=== PATIENT | female | born 1970 | race Caucasian/White ===

== ENCOUNTER 2017-06-29 10:41 | Outpatient (CLI) | payer MEDICAID ==
[2017-06-29 17:26] LABS: BASOPHILS # (AUTO) 0.1 10^3/uL (0.0-0.1); BASOPHILS % (AUTO) 0.6 %; EOSINOPHILS # (AUTO) 0.3 10^3/uL (0.0-0.7); EOSINOPHILS % (AUTO) 2.3 %; HCT - HEMATOCRIT 36.8 % (37.0-47.0); HGB - HEMOGLOBIN 11.6 g/dL (12.0-16.0); LYMPHOCYTES # (AUTO) 3.3 10^3/uL (1.5-3.5); LYMPHOCYTES % (AUTO) 28.1 %; MEAN CORPUSCULAR HEMOGLOBIN 25.9 pg (27.0-31.0); MEAN CORPUSCULAR HGB CONC 31.4 g/dL (32.0-36.0); MEAN CORPUSCULAR VOLUME 82.5 fL (81.0-99.0); MEAN PLATELET VOLUME 7.3 fL (7.9-10.8); MONOCYTES # (AUTO) 0.6 10^3/uL (0.0-1.0); MONOCYTES % (AUTO) 5.2 %; NEUTROPHILS # (AUTO) 7.5 10^3/uL (1.5-6.6); NEUTROPHILS % (AUTO) 63.8 %; RED BLOOD COUNT 4.46 10^6/uL (4.20-5.40); RED CELL DISTRIBUTION WIDTH 15.2 % (12.0-15.0); UNCORRECTED WHITE BLOOD COUNT 11.7 x10^3/uL; WHITE BLOOD COUNT 11.7 x10^3/uL (4.8-10.8)
[2017-06-29 17:46] LABS: ALBUMIN/GLOBULIN RATIO 1.3 (1.0-2.2); BILIRUBIN,TOTAL 0.6 mg/dL (0.2-1.0); BUN - BLOOD UREA NITROGEN 10 mg/dL (6-20); CALCIUM 9.2 mg/dL (8.5-10.3); CARBON DIOXIDE - CO2 22 mmol/L (21-32); CHLORIDE 104 mmol/L (101-111); CHOL/HDL RATIO 5.3 (<4.4); CHOLESTEROL 210 mg/dL; CREATININE 0.7 mg/dL (0.4-1.0); GFR - MDRD 90 (>89); GLUCOSE 98 mg/dL (70-100); HDL CHOLESTEROL 40 mg/dL; LDL/HDL RATIO 3.4 (<4.4); POTASSIUM 4.1 mmol/L (3.5-5.0); SODIUM 135 mmol/L (135-145); TOTAL PROTEIN 7.8 g/dL (6.7-8.2); TRIGLYCERIDES 163 mg/dL; VLDL CHOLESTEROL 33 mg/dL
== END 2017-06-29 10:42 | disposition home or self-care (01) ==
LOC: LAB.F 10:41
PROVIDERS: ATTEND Nurse Practitioner Family
DX: R53.83 Other fatigue (principal); Z13.220 Encounter for screening for lipoid disorders
CPT/HCPCS: 36415; 80053; 80061; 84443; 85025

== ENCOUNTER 2017-07-14 08:00 | Outpatient (CLI) | payer MEDICAID ==
[2017-07-14 18:23] LABS: IRON 14 ug/dL (28-170); TOTAL IRON BINDING CAPACITY 400 ug/dL (250-450); TRANSFERRIN 286 mg/dL (192-382)
== END 2017-07-14 08:01 | disposition home or self-care (01) ==
LOC: LAB.F 08:00
PROVIDERS: ATTEND Nurse Practitioner Family
DX: R71.8 Other abnormality of red blood cells (principal)
CPT/HCPCS: 36415; 82728; 83540; 84466

== ENCOUNTER 2017-07-31 12:00 | Outpatient (CLI) | payer MEDICAID | END 2017-07-31 12:01 | disposition home or self-care (01) | LOC: DI 12:00 → LAB.R 12:01 | PROVIDERS: ATTEND Obstetrics & Gynecology | DX: Z11.3 Encounter for screening for infections with a predominantly sexual mode of transmission (principal) | CPT/HCPCS: 87491; 87591 ==

== ENCOUNTER 2017-08-01 08:43 | Outpatient (CLI) | payer MEDICAID ==
--- NOTE | 2017-08-01 12:19 | Ultrasound Report ---
PELVIC ULTRASOUND: 08/01/2017 HISTORY: Pelvic pain. COMPARISONS: 03/28/2011 TECHNIQUE: Real-time scanning by the supervisor refractory products with saved static images reviewed. Transabdominal approach for global evaluation, endovaginal scanning for detailed assessment of the endometrium. LAST MENSTRUAL PERIOD: 07/09/2017 FINDINGS: Uterus: 9.2 x 7.9 x 5.5 cm, volume 130 mL. Anteverted configuration, no fibroids. Endometrial echo: 12.1 mm, unremarkable. Right ovary: 2.3 x 2.0 x 3.3 cm, volume 7.9 mL, normal echotexture and blood flow. Possible small 1 cm hemorrhagic cyst. Left ovary: 2.8 x 1.5 x 1.7 cm, volume 3.7 mL. Normal echotexture and blood flow. Simple cyst 2.6 x 2.0 x 1.9 cm. Free fluid: None. IMPRESSION: NO SIGNIFICANT ABNORMALITY PELVIC ULTRASOUND. JOB #: [id number] EXT JOB #:[id number]
== END 2017-08-01 08:44 | disposition home or self-care (01) ==
LOC: DI 08:43
PROVIDERS: ATTEND Obstetrics & Gynecology
DX: R10.2 Pelvic and perineal pain (principal)
CPT/HCPCS: 76830; 76856

== ENCOUNTER 2017-08-22 15:12 | Outpatient (CLI) | payer MEDICAID ==
[2017-08-22 15:48] LABS: BILIRUBIN,URINE NEGATIVE (NEGATIVE)
[2017-08-22 16:46] LABS: BASOPHILS # (AUTO) 0.1 10^3/uL (0.0-0.1); BASOPHILS % (AUTO) 0.8 %; EOSINOPHILS # (AUTO) 0.4 10^3/uL (0.0-0.7); EOSINOPHILS % (AUTO) 2.7 %; HCT - HEMATOCRIT 37.3 % (37.0-47.0); HGB - HEMOGLOBIN 12.3 g/dL (12.0-16.0); LYMPHOCYTES # (AUTO) 4.9 10^3/uL (1.5-3.5); LYMPHOCYTES % (AUTO) 35.5 %; MEAN CORPUSCULAR HEMOGLOBIN 28.2 pg (27.0-31.0); MEAN CORPUSCULAR HGB CONC 32.9 g/dL (32.0-36.0); MEAN CORPUSCULAR VOLUME 85.6 fL (81.0-99.0); MEAN PLATELET VOLUME 7.1 fL (7.9-10.8); MONOCYTES # (AUTO) 0.9 10^3/uL (0.0-1.0); MONOCYTES % (AUTO) 6.5 %; NEUTROPHILS # (AUTO) 7.5 10^3/uL (1.5-6.6); NEUTROPHILS % (AUTO) 54.5 %; RED BLOOD COUNT 4.35 10^6/uL (4.20-5.40); RED CELL DISTRIBUTION WIDTH 18.5 % (12.0-15.0); UNCORRECTED WHITE BLOOD COUNT 13.8 x10^3/uL; WHITE BLOOD COUNT 13.8 x10^3/uL (4.8-10.8)
== END 2017-08-22 15:13 | disposition home or self-care (01) ==
LOC: LAB 15:12
PROVIDERS: ATTEND Obstetrics & Gynecology
DX: D64.9 Anemia, unspecified (principal); R10.2 Pelvic and perineal pain
CPT/HCPCS: 36415; 81003; 84703; 85025

== ENCOUNTER 2017-08-23 10:03 | Day surgery (SDC) | payer MEDICAID ==
[~2017-08-23 10:03] MED LIST: LACTATED RINGERS 1,000 ML IV ONE
--- NOTE | 2017-08-23 10:04 | PREOP HISTORY & PHYSICAL ---
DATE OF SERVICE: 08/22/2017 Physician: Cb Barraza MD DIAGNOSIS: Menorrhagia with anemia. INTENDED PROCEDURE: Hysteroscopy, NovaSure endometrial ablation, D and C. HISTORY OF PRESENT ILLNESS: The patient is a 47-year-old 3, para 3 woman who has had over 3 months of prolonged and heavy uterine bleeding. She has developed anemia and was started on vitamins, iron, an d high iron-containing foods. Ultrasound was done and found no functional lesions or ovarian pathology. We discussed various therapies, inclusive of oral contraceptives, which she strongly declines because of a strong family cancer history. The patient has fibromyalgia, and she reports her dysmenorrhea to be fairly s shantel. Patient's menses are every 28 days with 7 days of bleeding, during which she passes clots and complet mega saturates 4-6 tampons a day. Patient is status post tubal ligation. The patient has never had an ab normal Pap result. PAST MEDICAL HISTORY: No STD history. Two vaginal deliveries inclusive of on third. Fibro myalgia. FAMILY HISTORY: Colon cancer in multitude of relatives, breast cancer in mother, ovarian cancer in [place] maternal relatives, diabetes maternal relatives and maternal grandmother. Depression father, mother, sister. SOCIAL HISTORY: . Financial stressors. Current smoker. Occasional alcohol use. No drug us e. High school graduate. No current work. PHYSICAL EXAMINATION GENERAL: Well groomed, pleasant. NECK: Supple neck. No thyromegaly. HEENT: Dentition in adequate repair. LUNGS: Clear. HEART: Regular. No murmur or gallop. BREASTS: Deferred to patient request. ABDOMEN: No hepatosplenomegaly. Nondistended. No tenderness. GENITALIA: External genitalia normal Bartholin's glands. No lesions, slight atrophy. VAGINA: Rugae present. No abnormal discharge. No significant prolapse. CERVIX: Parous, no lesions. Slight tenderness to movement. UTERUS: 5 weeks' size, tenderness, retroverted, retroflexed. ADNEXA: Normal left ovary. Mild left ovarian tenderness. Right ovary difficult to palpate due to m ore tenderness. EXTREMITIES: Nonedematous. LABORATORY DATA: Preop labs pending. ASSESSMENT: Patient has heavy menstrual bleeding but no evident functional lesion. Hormonal treatme nt options were declined. Discussed various options, and patient favors endometrial ablation due to rap id recovery. PLAN: Hysteroscopy to investigate the cavity, and endometrial ablation with NovaSure. Discussed ris ks, benefits and alternatives. Informed consent given. TD: 08/22/2017 20:25
[2017-08-23 10:27] LABS: HCG UR QUAL NEGATIVE
[2017-08-23] MEDS ORDERED: fentaNYL 100 MCG/2 ML VIAL IVP ONE (11:00)
[2017-08-23] MEDS ORDERED: LIDOCAINE-MPF 2% 5 ML VIAL IM ONE (11:00)
[2017-08-23] MEDS ORDERED: KETOROLAC 30 MG/ML VIAL IVP ONE (11:00)
[2017-08-23] MEDS ORDERED: DEXAMETHASONE 4 MG/ML VIAL IVP ONE (11:00)
[2017-08-23] MEDS ORDERED: MIDAZOLAM 2 MG/2 ML VIAL IVP ONE (11:00)
[2017-08-23] MEDS ORDERED: PROPOFOL 200 MG/20 ML VIAL IVP ONE (11:00)
[2017-08-23] MEDS ORDERED: ONDANSETRON 4 MG/2 ML VIAL IVP ONE (11:00)
--- NOTE | 2017-08-23 11:37 | OPERATIVE REPORT ---
Operative Report - General Planned Procedure: Hysteroscopy with NovaSure endometrial ablation Pre-Op Diagnosis: Menorrhagia, resultant anemia, negative ultrasound for intrauterine mass, F Procedure Performed: Hysteroscopy,NovaSure endometrial ablation, Dilatation and curettage Post Op Diagnosis: Benign appearing endometrium,Final pathology pending - Procedure Note Primary Surgeon: Cb Barraza MD Anesthesia Provider: Leora Richey Certified nurse sorter operator Anesthesia Technique: General ET tube Pathology: Endometrial curettage, Endocervical curettings IV Fluids (mL): 400 Estimated Blood Loss (mL): 10 Urine Output (mL): 120 Complications: None
[2017-08-23] MEDS: fentaNYL 100 MCG/2 ML VIAL ONE ×2 (12:29→12:40)
[2017-08-23 13:13] VITALS: BP 128/79
--- NOTE | 2017-08-23 19:06 | OPERATIVE REPORT ---
DATE OF SERVICE: 08/23/2017 Physician: Cb Barraza MD DATE OF PROCEDURE: 08/23/2017 PREOPERATIVE DIAGNOSIS: Menorrhagia with resultant anemia; negative ultrasound for endometrial thickening or mass. POSTOPERATIVE DIAGNOSIS: Benign appearing endometrium; final pathology pending ; successful endometrial ablation. PROCEDURES 1. NovaSure endometrial ablation. 2. Diagnostic hysteroscopy. 3. Fractional dilatation and curettage. SURGEON: Cb Barraza MD, FACOG, FICS. ANESTHESIA: Leora Richey, certified nurse plumbing foreman. ANESTHESIA TYPE: General, ET tube placed. COMPLICATIONS: None. ESTIMATED BLOOD LOSS: 10 mL or less. DRAINS: None. SPECIMENS: None. Patient straight cathed prior to procedure. IV FLUIDS: 400. ESTIMATED URINE OUTPUT: 120. FINDINGS Exam under anesthesia findings: No vulvar lesions. Vagina has no blood or discharge after prep. Minimal cystorectocele. Cervix non-inflamed, slightly stenotic; endocervical sample sent. Uterus has no fibroid effect. Benign-appearing fluffy endometrium, sampled with curettage. Post-endometrial ablation estimate 85% to 90% of all endometrium treated. TECHNIQUE: Awake patient was brought to the operating room and placed in supine position for administration of general anesthesia. She was uneventfully induced and intubated. She was moved to the high dorsal lithotomy position on candy cane stirrups. She was prepped and draped in a customary sterile fashion. She was straight cath'd for urine drainage. A timeout was done per protocol. Speculum was inserted and the cervix visualized. Anterior cervical lip was grasped with single-tooth tenaculum. Endocervical canal was curettaged with a small curette and sample sent. Using serial application of Hegar probes, the endocervical canal was dilated to size 7. A 30-degree video hysteroscope was then guided through the endocervical canal and into the cavity. The cavity was flushed with warm normal saline. It was inspected and photographed. The hysteroscope then was removed. Medium sized curet was used, and the endometrial cavity was systematically curettaged. NovaSure endometrial ablation device was opened and initial calibration scheme done. The NovaSure was then guided through the endocervical canal and deployed. Total depth was 7 cm and therefore 6.5 was set on length. The device was twisted slightly to get maximal deployment to 4.5. The 4.5 was set in a vertical width. A safety check was good. The NovaSure was then uneventfully fired. Post firing, the NovaSure was retracted back into the sleeve and all instruments removed. A quick hysteroscope was done to assess the internal cavity, reference photos. There was no evidence of perforation, and roughly 90% of the surface was treated. At this point, all instruments were removed. All sponge, needle, and instrument counts were confirmed as correct. The patient was returned to the supine. Anesthesia was uneventfully reversed and patient awakened. Intraoperative events were reviewed with the patient, as well as photos. MEDICATIONS: Discharge medications included Motrin 600 q.6 hours with [place] 325 as 1-2 tabs as needed for breakthrough pain. Warning sign and callback instructions were reviewed. Patient will be reevaluated in 2 weeks post procedure. TD: 08/23/2017 18:35 NEHA
== END 2017-08-23 10:04 | disposition home or self-care (01) ==
LOC: SDS 10:03
PROVIDERS: ATTEND Obstetrics & Gynecology
PROC: 0UDB8ZX Extraction of Endometrium, Via Natural or Artificial Opening Endoscopic, Diagnostic (ICD-10-PCS; 2017-08-23)
PROC: 0U5B8ZZ Destruction of Endometrium, Via Natural or Artificial Opening Endoscopic (ICD-10-PCS; principal; 2017-08-23 10:30)
DX: N92.0 Excessive and frequent menstruation with regular cycle (principal); D64.9 Anemia, unspecified; F17.200 Nicotine dependence, unspecified, uncomplicated
CPT/HCPCS: 58563; 81025; J7120

== ENCOUNTER 2018-03-15 11:27 | Outpatient (CLI) | payer OTHER ==
--- NOTE | 2018-03-16 11:36 | Mammography Report ---
Procedure Date: 03/15/2018 Accession Number: [id number] / [id number] Procedure: [facility] - Screening Mammo Dig Bilat CPT Code: FULL RESULT: EXAM: Screening Mammo Dig Bilat DATE: 03/15/2018 12:34 PM CLINICAL HISTORY: 47-year-old female with history of early menses and 10 years of hormone therapy stopped in 1998 as well as a family history of breast cancer in the mother at age 50 presents for baseline mammogram. TECHNIQUE: Bilateral CC and MLO views were obtained. COMPARISON: None FINDINGS: The breasts demonstrate heterogeneously dense fibroglandular parenchyma bilaterally. Bilateral typically benign coarse calcifications are noted. No suspicious masses, clustered microcalcifications, or regions of architectural distortion are identified. IMPRESSION: Benign findings RECOMMENDATION: Routine annual screening unless otherwise clinically indicated. BIRADS CATEGORY 2: Benign findings STANDARD QUALIFYING STATEMENTS: 1. This examination was reviewed with the aid of Computer-Aided Detection (CAD). 2. A negative or benign imaging report should not delay biopsy if clinically suspicious findings are present. Consider surgical consultation if warrented. More than 5% of cancers are not identified by imaging. 3. Dense breasts may obscure an underlying neoplasm.
== END 2018-03-15 11:28 | disposition home or self-care (01) ==
LOC: DI 11:27
PROVIDERS: ATTEND Physician Assistant
DX: Z12.31 Encounter for screening mammogram for malignant neoplasm of breast (principal); Z80.3 Family history of malignant neoplasm of breast
CPT/HCPCS: 77067